=== PATIENT | male | born 1955 | race Two or more races ===

== ENCOUNTER 2018-01-12 08:45 | Day surgery (SDC) | payer BC ==
[2018-01-08 13:53] LABS: Basophils # (auto) 0 uL; Basophils % (auto) 0.8 % (0.0-2.0); Eosinophils # (auto) 0.1 uL; Eosinophils % (auto) 2.2 % (0.0-7.0); Hematocrit 44.9 % (41.0-53.0); Hemoglobin 15.4 g/dL (13.5-17.5); Lymphocytes # (auto) 1.5 uL; Lymphocytes % (auto) 25.1 % (10.0-50.0); Mean Corpuscular Hemoglobin 30.9 pg (28.0-32.0); Mean Corpuscular Hgb Conc. 34.3 g/dL (32.0-36.0); Mean Corpuscular Volume 89.9 fL (80.0-100.0); Monocytes # (auto) 0.6 uL; Monocytes % (auto) 9.3 % (0.0-12.0); Neutrophils # (auto) 3.7 uL; Neutrophils % (auto) 62.6 % (37.0-80.0); Nucleated Red Blood Cells % 0.1 %; Platelet Count (auto) 177 10^3/uL (140-450); Red Blood Cells 4.99 10^6/uL (4.5-5.90)
[2018-01-08 13:55] LABS: INR 0.97 (0.9-1.15); Prothrombin Time 10.6 sec (9.37-12.3); Urine Bacteria NONE SEEN /hpf (None Seen); Urine Blood Negative /uL (Negative); Urine Mucus FEW (None Seen); Urine Specific Gravity 1.018 (1.001-1.035); Urine WBC 1 /hpf (0 - 3)
[2018-01-08 13:57] LABS: BUN/Creatinine Ratio 13.3; Calcium 8.9 mg/dL (8.5-10.1); Potassium 3.7 mmol/L (3.5-5.1)
[~2018-01-12] VITALS: Ht 170.2 cm; Wt 81.6 kg
[~2018-01-12 08:45] MED LIST: ALBUAER3 IN; FLUT100I IN; FOLI1TAB6 PO; LISI-275 PO; METH2.5T3 PO; PANT40TA2 PO; PRAV20TA3 PO
[2018-01-12] MEDS ORDERED: ceFAZolin 1GM/50ML 50 ML IV ONE (09:34)
[2018-01-12] MEDS ORDERED: fentaNYL CITRATE 100 MCG/2 ML VL ONE ×2 (10:54→11:30)
[2018-01-12] MEDS ORDERED: PROPOFOL 10 MG/ML 20 ML IV ONE ×2 (10:55→11:35)
[2018-01-12] MEDS ORDERED: MIDAZOLAM HCL 1MG/1ML-2 ML VIAL ONE ×2 (10:55→11:30)
[2018-01-12] MEDS ORDERED: HYDROCORTISONE SOD SUCC 100 MG/2ML INJ VIAL IV ONE (11:26)
[2018-01-12] MEDS ORDERED: HYDROCORTISONE SOD SUCC 100 MG/2ML INJ VIAL ONE (11:56)
[2018-01-12] MEDS ORDERED: fentaNYL CITRATE 100 MCG/2 ML VL IV ONE (12:00)
[2018-01-12] MEDS ORDERED: hydrALAZINE HCL 20 MG/ML VL IV PRN (12:00)
[2018-01-12] MEDS ORDERED: ePHEDrine SULFATE 50 MG/ML AMP IV PRN (12:00)
[2018-01-12] MEDS ORDERED: ONDANSETRON HCL 4 MG/2 ML VIAL IV ONE (12:00)
[2018-01-12 12:16] VITALS: BP 113/75
== END 2018-01-12 12:40 | disposition home or self-care (01) ==
LOC: SUR 08:45
PROVIDERS: ATTEND Urology
DX: R97.20 Elevated prostate specific antigen [PSA] (principal); K21.9 Gastro-esophageal reflux disease without esophagitis; I10 Essential (primary) hypertension; J45.909 Unspecified asthma, uncomplicated; M19.90 Unspecified osteoarthritis, unspecified site; E78.5 Hyperlipidemia, unspecified
CPT/HCPCS: 36415; 55706; 80048; 81001; 85025; 85610; 85730; 87086; J0690; J1720; J2250; J2704; J3010; J7030

== ENCOUNTER 2018-10-27 11:39 | Emergency (ER) | payer SELFPAY ==
[~2018-10-27] VITALS: Ht 170.2 cm; Wt 82.6 kg
[2018-10-27] MEDS ORDERED: SODIUM CHLORIDE 0.9% 1,000 ML IV ONE (12:30)
[2018-10-27] MEDS ORDERED: THIAMINE INJ 100 MG, MULTIPLE VITAMIN 10 ML, FOLIC ACID 1 MG, MAGNESIUM SULF SDV 50% 8 ... IV SCH ×5 (12:43)
[2018-10-27] MEDS ORDERED: LORazepam 2MG/ML-1ML VIAL IV ONE ×2 (12:45→14:00)
[2018-10-27] MEDS ORDERED: LORazepam 2MG/ML-1ML VIAL ONE (12:45)
[2018-10-27] MEDS ORDERED: ONDANSETRON HCL 4 MG/2 ML VIAL ONE (12:45)
[2018-10-27] MEDS ORDERED: ONDANSETRON HCL 4 MG/2 ML VIAL IV ONE (12:45)
[2018-10-27 13:15] LABS: Basophils # (auto) 0.1 uL; Basophils % (auto) 0.9 % (0.0-2.0); Eosinophils # (auto) 0 uL; Eosinophils % (auto) 0.1 % (0.0-7.0); Hemoglobin 16.5 g/dL (13.5-17.5); Lymphocytes # (auto) 1.1 uL; Lymphocytes % (auto) 14.8 % (10.0-50.0); Monocytes # (auto) 0.5 uL; Monocytes % (auto) 6.9 % (0.0-12.0); Neutrophils # (auto) 5.7 uL; Neutrophils % (auto) 77.3 % (37.0-80.0); Red Blood Cells 4.91 10^6/uL (4.5-5.90); White Blood Cell 7.4 10^3/uL (4.4-10.8)
[2018-10-27 13:16] LABS: Hematocrit 50.2 % (41.0-53.0); Mean Corpuscular Hemoglobin 33.5 pg (28.0-32.0); Mean Corpuscular Hgb Conc. 32.8 g/dL (32.0-36.0); Mean Corpuscular Volume 102.1 fL (80.0-100.0); Platelet Count (auto) 189 10^3/uL (140-450); Red Cell Distribution Width 14.5 % (11.8-14.3)
[2018-10-27 13:30] LABS: Albumin 4.2 g/dL (3.4-5.0); BUN/Creatinine Ratio 12.8; Calcium 8.3 mg/dL (8.5-10.1)
[2018-10-27 13:32] LABS: Bilirubin, Total 0.9 mg/dL (0.2-1.0)
[2018-10-27 15:21] VITALS: BP 170/98
[2018-10-27 15:37] LABS: Amphetamine Screen, Urine NEGATIVE (NEGATIVE); Barbiturate Scree,Urine NEGATIVE (NEGATIVE); Benzodiazephine Screen, Urine NEGATIVE (NEGATIVE); Cannabinoid Screen, Urine NEGATIVE (NEGATIVE); Cocaine Screen, Urine NEGATIVE (NEGATIVE); Opiate Scree,Urine NEGATIVE (NEGATIVE); Phencyclidine Screen, Urine NEGATIVE (NEGATIVE)
[2018-10-27 16:00] LABS: Urine Bacteria FEW /hpf (None Seen); Urine Blood Negative /uL (Negative); Urine Mucus FEW (None Seen); Urine Specific Gravity 1.017 (1.001-1.035); Urine WBC <1 /hpf (0 - 3)
== END 2018-10-27 16:02 | disposition home or self-care (01) ==
LOC: ER 11:39
DX: G92 Toxic encephalopathy (principal); F10.239 Alcohol dependence with withdrawal, unspecified; E87.6 Hypokalemia; R45.1 Restlessness and agitation; J45.909 Unspecified asthma, uncomplicated; K21.9 Gastro-esophageal reflux disease without esophagitis; I10 Essential (primary) hypertension; E78.5 Hyperlipidemia, unspecified; Y90.0 Blood alcohol level of less than 20 mg/100 ml
CPT/HCPCS: 36415; 80053; 80307; 80320; 81001; 85025; 94761; 96365; 96375; 96376; 99283; J2060; J2405; J3411; J3475; J7030

== ENCOUNTER 2021-05-04 20:52 | Emergency (ER) | payer MEDICAID ==
[~2021-05-04] VITALS: Ht 170.2 cm; Wt 86.2 kg
[~2021-05-04 20:52] MED LIST changes: +GABA400C11 PO; +METH2.5T PO; -METH2.5T3 PO; +SERT50TA PO; +THIA100T10 PO
[2021-05-05] MEDS ORDERED: cefTRIAXone SOD 1,000 MG VL IM ONE (01:15)
[2021-05-05] MEDS ORDERED: AMOXICILLIN/CLAVUL 875 MG TAB PO ONE (01:15)
[2021-05-05] MEDS ORDERED: LIDOCAINE 2% (LOCAL ANESTH.) PF 5ml SDV ONE (01:27)
[2021-05-05 01:32] VITALS: BP 144/76
== END 2021-05-05 01:33 | disposition home or self-care (01) ==
LOC: ER 20:52
DX: S51.852A Open bite of left forearm, initial encounter (principal); J45.909 Unspecified asthma, uncomplicated; K21.9 Gastro-esophageal reflux disease without esophagitis; E78.5 Hyperlipidemia, unspecified; I10 Essential (primary) hypertension; Z79.899 Other long term (current) drug therapy; W55.01XA Bitten by cat, initial encounter; Y93.89 Activity, other specified; Y92.89 Other specified places as the place of occurrence of the external cause; Y99.8 Other external cause status
CPT/HCPCS: 96372; 99283; J0696; J2001